=== PATIENT | female | born 1965 | race Caucasian/White ===

== ENCOUNTER 2018-02-20 14:27 | Outpatient (CLI) | payer BC, MEDICARE ==
--- NOTE | 2018-02-20 15:42 | MRI ---
MRI LUMBAR SPINE NONCONTRAST: INDICATION: Lumbar spondylolisthesis, stenosis. Chronic low back pain. FINDINGS: There is grade I spondylolisthesis at L3-4, with associated disk bulge and moderate disk space narrow ing. No acute marrow edema or compression fracture. The conus medullaris is normal in morphology an d terminates at the L1-2 level. At L1-2, L2-3, L4-5, and L5-S1, no significant central canal or neural foraminal stenosis is demonstr ated. L3-4 level, as discussed above, demonstrates grade I spondylolisthesis, and when combined with broad- based disk bulge and moderate bilateral facet osteoarthritis with redundancy of ligamentum flava resu lts in severe central canal stenosis, moderate right and mild left neural foraminal narrowing. No obvious marrow edema of the pars region of L3. A displaced pars fracture is not identified. IMPRESSION: Spondylolisthesis and prominent degenerative change centered at L3-4, which does result in severe madelyn tral canal stenosis and bilateral neural foraminal compromise, greater on the right. POS: TPC
== END 2018-02-20 14:28 | disposition home or self-care (01) ==
LOC: TBSIIMAG 14:27
PROVIDERS: ATTEND Neurological Surgery
DX: M43.16 Spondylolisthesis, lumbar region (principal); M48.061 Spinal stenosis, lumbar region without neurogenic claudication; M47.816 Spondylosis without myelopathy or radiculopathy, lumbar region
CPT/HCPCS: 72148

== ENCOUNTER 2018-03-03 13:47 | Outpatient (CLI) | payer BC, MEDICARE ==
[2018-03-03 15:10] LABS: BHCG - Serum Negative (NEGATIVE); Pregs Control Background? CLEAR/WHITE (CLR/WHITE); Pregs Control Bar Appear? YES (CONTROL BAR)
== END 2018-03-03 13:48 | disposition home or self-care (01) ==
LOC: LABBT 13:47
PROVIDERS: ATTEND Neurological Surgery
DX: Z01.818 Encounter for other preprocedural examination (principal); M43.16 Spondylolisthesis, lumbar region; M48.061 Spinal stenosis, lumbar region without neurogenic claudication
CPT/HCPCS: 84703; 93005; 93010

== ENCOUNTER 2018-03-13 06:40 | Observation (INO) | payer BC, MEDICARE ==
[2018-03-03 14:06] VITALS: BMI 33.0
--- NOTE | 2018-03-13 07:30 | HP ---
HISTORY OF PRESENT ILLNESS: Ms. Garcia is a 52-year-old woman presenting today for referral by Dr. Shah for evaluation of lower back pain with bilateral L3-L4 pain, and neurogenic claudication symptoms. The injection she received helped tremendously, but over a month or so, her pain will recur. She had an MRI from [place] that revealed severe central canal stenosis and foraminal stenosis at L3- L4 with a grade I spondylolisthesis as well. She is here today to discuss possible surgery. PAST MEDICAL HISTORY: Significant for anxiety, seasonal allergies, hyperlipidemia, chronic pain syndrome, depression, migraines, and hypertension. PAST SURGICAL HISTORY: section, cholecystectomy. ALLERGIES: 1. SULFA DRUGS. 2. ADHESIVES. CURRENT MEDICATIONS: 1. Polyethylene glycol. 2. Lisinopril/hydrochlorothiazide. 3. [place]. 4. Clonazepam. 5. Atorvastatin. 6. Latuda. 7. Topiramate. 8. Lyrica. 9. Tramadol. 10. Vyvanse. PHYSICAL EXAMINATION: GENERAL: The patient is alert and oriented x3. Gait is significantly antalgic. EXTREMITIES: Lower extremity motor exam is normal. ASSESSMENT: Lumbar spondylolisthesis, back pain, and radiculopathy. PLAN: Dr. Spivey met with the patient, reviewed imaging, and advocated for an L3 -L4 facetectomy and fusion. He explained to the patient the risks, benefits, and alternatives to the procedure. The patient expressed understanding and elected to move forward with surgery as discussed. I do believe that the patient is mentally competent and capable of making medical decisions for herself. We will move forward with surgery as planned. Job ID: [id number] [facility]
[2018-03-13] MEDS ORDERED: CEFAZOLIN 2 GM/50 ML BAG ONE (07:36)
[2018-03-13] MEDS ORDERED: Ipratropium Bromide 2.5 ml Neb ONE (07:36)
[2018-03-13] MEDS ORDERED: Ketorolac Tromethamine 30 MG/ML VIAL ONE (08:01)
[2018-03-13] MEDS ORDERED: Ondansetron PF 4 MG/2 ML Vial ONE (08:01)
[2018-03-13] MEDS ORDERED: Glycopyrrolate 0.2 MG/ML 5 ML SYRINGE ONE (08:01)
[2018-03-13] MEDS ORDERED: Lidocaine 1% PF 5 ML VIAL ONE (08:01)
[2018-03-13] MEDS ORDERED: Dexamethasone 20 MG/5 ML VIAL ONE (08:01)
[2018-03-13] MEDS ORDERED: PHENYLEPHRINE-NS 100 MCG/ML 10 ML SYRINGE ONE (08:01)
[2018-03-13] MEDS ORDERED: ePHEDrine/0.9% NaCl/PF SYRINGE 50 mg/10 ml ONE (08:01)
[2018-03-13] MEDS ORDERED: PROPOFOL 200 MG/20 ML VIAL ONE (08:01)
[2018-03-13] MEDS ORDERED: Thrombin 5000 UNITS/5 ML VIAL ONE (08:26)
[2018-03-13] MEDS ORDERED: Bupivacaine HCl 0.5%/Epinephrine 1:200,000/PF 30 ml Vial ONE (08:26)
[2018-03-13] MEDS ORDERED: Midazolam HCl 2 mg/2 ml Vial ONE (08:30)
[2018-03-13] MEDS ORDERED: HYDROmorphone 2 MG/ML VIAL ONE (08:43)
[2018-03-13] MEDS ORDERED: Lidocaine 2% Jelly 5 ML TUBE ONE (08:44)
[2018-03-13] MEDS ORDERED: Morphine Sulfate 2 MG/ML SYRINGE SLOW IVP PRN (11:07)
[2018-03-13] MEDS ORDERED: PACU-Morphine 4MG/ML VIAL SLOW IVP PRN (11:07)
[2018-03-13] MEDS ORDERED: Promethazine HCl 25 MG/ML VIAL SLOW IVP PRN (11:07)
[2018-03-13] MEDS ORDERED: HYDROmorphone 2 MG/ML VIAL SLOW IVP PRN (11:07)
[2018-03-13] MEDS ORDERED: Meperidine HCl/PF 25 MG/ML VIAL SLOW IVP PRN (11:07)
[2018-03-13] MEDS ORDERED: Promethazine HCl 25 MG/ML VIAL IM PRN (11:07)
[2018-03-13] MEDS ORDERED: Ondansetron HCl/PF 4 MG/2 ML Vial IVP PRN (11:07)
[2018-03-13] MEDS ORDERED: Acetaminophen 650 MG Suppository PR PRN (15:42)
[2018-03-13] MEDS ORDERED: diphenhydrAMINE 50 MG/ML VIAL IVP PRN (15:42)
[2018-03-13] MEDS ORDERED: Bisacodyl 10 MG SUPP PR PRN (15:42)
[2018-03-13] MEDS ORDERED: diphenhydrAMINE 25 MG CAP PO PRN (15:42)
[2018-03-13] MEDS ORDERED: Acetaminophen 325 MG TAB PO PRN (15:42)
[2018-03-13] MEDS ORDERED: Cyclobenzaprine 10 MG TAB PO PRN (15:42)
[2018-03-13] MEDS ORDERED: Milk Of Magnesia 30 ML UDCUP PO PRN (15:42)
[2018-03-13] MEDS ORDERED: Morphine 4 MG/ML VIAL SLOW IVP PRN ×2 (15:42→15:50)
[2018-03-13] MEDS ORDERED: HYDROcodone/Acetaminophen 10/325 mg Tablet PO PRN (15:42)
[2018-03-13] MEDS ORDERED: Ondansetron PF 4 MG/2 ML Vial IM PRN (15:43)
[2018-03-13] MEDS: Sodium Chloride 0.9% 1,000 ML IV SCH (15:59)
[2018-03-13] MEDS: CEFAZOLIN 2 GM/50 ML-DEXTROSE 2 GM in Premix Bag 1 BAG IVPB SCH (16:25)
[2018-03-13] MEDS ORDERED: traMADol HCl 50 MG TAB PO PRN (16:46)
[2018-03-13] MEDS: HYDROcodone/Acetaminophen 10/325 mg Tablet PO PRN ×2 (17:29→21:39)
--- NOTE | 2018-03-13 19:36 | OP ---
DATE OF PROCEDURE: 03/13/2018 BASEBALL INSPECTOR: Lavon Alford PA-C. INDICATION: Pain. DIAGNOSIS: Lumbar stenosis with lumbar radiculopathy with lumbar spondylolisthesis of L3 upon L4. PROCEDURE PERFORMED: L3-L4 decompression, L3-L4 facetectomies, L3-L4 posterolateral instrumented fusion, placement of allograft, placement of autograft. ANESTHESIA: General. DESCRIPTION OF PROCEDURE: The patient was brought into the operating room and placed under general anesthesia. She was flipped from a supine to prone position on the operating room table. A linear incision was planned over the L3-L4 segment. After prepping and draping and after preoperative pause, the incision was created. The soft tissues were swept away from midline. A self-retaining retractor was placed in the wound for optimal exposure. After confirming the appropriate level with C-arm fluoroscopy, high-speed cutting drill bit as well as Adson rongeur as well as 2, 3, and 4 mm Kerrisons were used to perform a laminectomy at L3-L4. The laminectomy was extended to encompass the medial aspect of the facet joints. The L3 and L4 pedicles were palpated. With the aid of C-arm fluoroscopy, pedicle screws were placed into the L3 and L4 pedicles bilaterally. Rods were then placed across the screw head and final tightened under slight distraction. An intraoperative 3D CT scan was performed to confirm placement of hardware. Allograft and autograft materials were then placed within the lateral confines of the instrumentation construct. The wound was irrigated. Hemostasis was maintained throughout. The wound was then closed in anatomic layers and a pressure dressing was applied. There were no known procedural complications. Job ID: [id number]
[2018-03-13] MEDS: clonazePAM 1 MG TAB PO SCH (20:59)
[2018-03-13] MEDS ORDERED: CANNABIDIOL PO SCH (21:00)
[2018-03-13] MEDS ORDERED: Polyethylene Glycol 3350 17 GM Packet PO SCH (21:00)
[2018-03-13] MEDS ORDERED: diphenhydrAMINE 50 MG CAP PO SCH (21:00)
[2018-03-13] MEDS ORDERED: Lisinopril/Hydrochlorothiazide 20/25 mg Tablet PO SCH (21:00)
[2018-03-13] MEDS ORDERED: EXTRACT PO SCH (21:00)
[2018-03-14] MEDS: CEFAZOLIN 2 GM/50 ML-DEXTROSE 2 GM in Premix Bag 1 BAG IVPB SCH (00:20)
[2018-03-14] MEDS: HYDROcodone/Acetaminophen 10/325 mg Tablet PO PRN ×2 (06:04→10:05)
[2018-03-14] MEDS: Mag-Al 1200 mg/1200 mg/30 ML UDCUP PO PRN ×2 (06:04→11:24)
[2018-03-14] MEDS: Sodium Chloride 0.9% 1,000 ML IV SCH ×2 (06:07→08:14)
[2018-03-14] MEDS: clonazePAM 1 MG TAB PO SCH (07:58)
[2018-03-14] MEDS ORDERED: Lisinopril/Hydrochlorothiazide 20/25 mg Tablet PO SCH (09:00)
[2018-03-14] MEDS ORDERED: Atorvastatin Calcium 10 MG TAB PO SCH (09:00)
[2018-03-14] MEDS ORDERED: Polyethylene Glycol 3350 17 GM Packet PO SCH (09:00)
[2018-03-14] MEDS ORDERED: Pregabalin 75 MG CAP PO SCH (09:00)
[2018-03-14] MEDS ORDERED: Lithium Carbonate 150 MG CAP PO SCH (09:00)
--- NOTE | 2018-03-14 11:03 | DIS ---
DATE OF ADMISSION: 03/13/2018 DATE OF DISCHARGE: 03/14/2018 HISTORY: Ms. Garcia is a 52-year-old woman, who was admitted yesterday, on March 13, 2018 in the postoperative period. ADMISSION DIAGNOSIS: Status post lumbar fusion. DISCHARGE DIAGNOSIS: Status post lumbar fusion. HOSPITAL COURSE: She ultimately was discharged on March 14 in stable condition with outpatient followup planned on March 31. No consultations were ordered. She did have some mild disruption or difficulty with her pain. She was given ultimately a fentanyl patch for discharge . Job ID: [id number]
--- NOTE | 2018-03-14 12:24 | PRG ---
DATE OF SERVICE: 03/14/2018 SUBJECTIVE: Ms. Garcia is one day status post lumbar fusion. She has done quite well overnight. She has anticipated postsurgical back pain. PLAN: Our plan will be to send her home today. We will see her back in two weeks. Job ID: [id number]
[2018-03-14 12:40] VITALS: BP 108/71; TEMP 97.9
[2018-03-14] MEDS ORDERED: Vilazodone Hcl [Viibryd] 40 MG PO SCH (21:00)
[2018-03-14] MEDS ORDERED: Lurasidone Hcl [Latuda] 80 MG PO SCH (21:00)
[2018-03-14] MEDS ORDERED: Lisdexamfetamine Dimesylate [Vyvanse] 40 MG PO SCH (21:00)
== END 2018-03-14 13:40 | disposition home or self-care (01) ==
LOC: SDC 06:40 → SURG B 13:25
PROVIDERS: ADMIT Neurological Surgery; ATTEND Neurological Surgery
PROC: 0SG0071 Fusion of Lumbar Vertebral Joint with Autologous Tissue Substitute, Posterior Approach, Posterior Column, Open Approach (ICD-10-PCS; principal; 2018-03-13)
DX: M48.062 Spinal stenosis, lumbar region with neurogenic claudication (principal); M43.16 Spondylolisthesis, lumbar region; M54.16 Radiculopathy, lumbar region; I10 Essential (primary) hypertension; E78.5 Hyperlipidemia, unspecified; F41.9 Anxiety disorder, unspecified; F32.9 Major depressive disorder, single episode, unspecified; G89.4 Chronic pain syndrome; Z90.49 Acquired absence of other specified parts of digestive tract; Z88.2 Allergy status to sulfonamides; Z91.09 Other allergy status, other than to drugs and biological substances; Z79.899 Other long term (current) drug therapy; Z98.890 Other specified postprocedural states
CPT/HCPCS: 76001; 96365; 96366; C1713; C1768; G0378; G8978-GP-CJ; G8979-GP-CJ; G8980-GP-CJ; J0131; J0670; J1100; J1170; J1885; J2001; J2250; J2405; J2704

== ENCOUNTER 2019-03-19 10:38 | Outpatient (CLI) | payer BC ==
[2019-03-19 15:11] LABS: Hemoglobin 13.8 g/dL (12.0-16.0); Mean Corpuscular HGB CONC 34.3 g/dL (32.0-36.0); Mean Corpuscular Hemoglobin 29.6 pg (27.0-31.0); Mean Corpuscular Volume 86.2 fL (78.0-98.0); Mean Platelet Volume 7.6 fL (7.4-10.4); Platelet Count 237 thou/uL (130-400); RBC Distribution Width 13.3 % (11.5-14.5); Red Blood Cell (RBC) Count 4.68 mill/uL (4.20-5.40); White Blood Cell (WBC) Count 8.9 thou/uL (4.8-10.8)
[2019-03-19 15:31] LABS: Anion Gap 14 mmol/L (10-20); BUN (Urea Nitrogen) 9 mg/dL (9.8-20.1); Calc. Creatinine Clearance 0 mL/min (70-130); Calcium 9.4 mg/dL (7.8-10.44); Carbon Dioxide 24 mmol/L (22-29); Chloride 106 mmol/L (98-107); Estimated GFR-MDRD 65; Glucose 94 mg/dL (70-105); Potassium 4.1 mmol/L (3.5-5.1); Sodium 140 mmol/L (136-145)
== END 2019-03-19 10:39 | disposition home or self-care (01) ==
LOC: LABBT 10:38
PROVIDERS: ATTEND Student in an Organized Health Care Education/Training Program
DX: Z01.818 Encounter for other preprocedural examination (principal); N81.6 Rectocele
CPT/HCPCS: 80048; 85027; 93005; 93010

== ENCOUNTER 2019-03-22 10:51 | Day surgery (SDC) | payer BC, MEDICARE ==
[2019-03-19 15:00] VITALS: BMI 33.3
[~2019-03-22 10:51] MED LIST: Dexamethasone 20 MG/5 ML VIAL ONE; Ketorolac Tromethamine 30 MG/ML VIAL ONE; Ondansetron PF 4 MG/2 ML Vial ONE; PHENYLEPHRINE-NS 100 MCG/ML 10 ML SYRINGE ONE; PROPOFOL 200 MG/20 ML VIAL ONE; Rocuronium Bromide 10 MG/ML (10ML VIAL) ONE
[2019-03-22] MEDS ORDERED: Gabapentin 300 MG CAP ONE (11:09)
[2019-03-22] MEDS ORDERED: Famotidine/PF 20 mg/2ml Vial ONE ×3 (11:09→12:05)
[2019-03-22] MEDS ORDERED: Lidocaine 1% w/Epinephrine 1:100K 20 ML VIAL ONE (14:13)
[2019-03-22] MEDS ORDERED: Fentanyl 100 MCG/2 ML VIAL ONE (14:27)
[2019-03-22] MEDS ORDERED: Midazolam HCl 2 mg/2 ml Vial ONE (14:27)
--- NOTE | 2019-03-24 23:31 | OP ---
DATE OF PROCEDURE: 03/22/2019 PREOPERATIVE DIAGNOSIS: Symptomatic rectocele. POSTOPERATIVE DIAGNOSIS: Symptomatic rectocele. PROCEDURES PERFORMED: Posterior colporrhaphy, and perineorrhaphy. ANESTHESIA: General LMA. ESTIMATED BLOOD LOSS: 20 mL. COMPLICATIONS: None. DRAINS: None. PATHOLOGY: None. FINDINGS: Stage III rectocele that protruded out past the hymenal ring, a small midline cystocele as well as slight uterine prolapse that the patient is asymptomatic from. DESCRIPTION OF PROCEDURE: The patient was taken to the operating room, where general anesthesia was obtained without difficulty. The patient was prepped and draped in a sterile fashion in the dorsal lithotomy position. Two Allis' were placed on the hymen at 4 and 8, and traction was held on the posterior vaginal mucosa. The vaginal mucosa was infiltrated with 1% lidocaine with epinephrine and the Metzenbaums were used to incise at the hymen and undermine the vaginal mucosa off the rectovaginal fascia. An incision was made in the midline throughout the length of the posterior vaginal wall. Allis' were placed on both skin edges and the rectovaginal fascia was dissected off the vaginal mucosa with Metzenbaums as well as with a fluffed-out Ray-Chiara using blunt dissection. Hemostasis was achieved with the Bovie. The apical posterior mucosa was then plicated in a pursestring fashion with 2-0 Vicryl and the remainder of the posterior fascia was plicated in a [id number] fashion down the length of the vaginal mucosa ensuring the grasp being good, strong areas of fascia and areas that were clearly with a defect being reapproximated to provide good strength to the posterior wall. Once the entire posterior wall was plicated, the Bovie on cut was used to make a triangular incision on the perineum for perineorrhaphy. The skin was removed with the use of the Bovie and discarded. The superficial transverse perineal muscles were then dissected out with the Metzenbaums and the perineum was plicated in the midline with the U-stitch with 2-0 Vicryl x2. At that point, irrigation was performed of the surgical site. Hemostasis was noted. The vaginal mucosa was closed with a 2-0 Vicryl in a running locking fashion and the knot was placed just inside the vagina after the perineum was also closed in the same fashion. All instruments were removed from the vagina. The vagina was packed with a moist Kerlix. Hemostasis was noted. The patient tolerated the procedure well. Sponge, lap, and needle counts were correct x2. The patient was taken to recovery room in stable condition. The patient received Ancef 2 g prior to the procedure. Job ID: [id number]
== END 2019-03-22 17:55 | disposition home or self-care (01) ==
LOC: SDC 10:51
PROVIDERS: ATTEND Student in an Organized Health Care Education/Training Program
PROC: 0JQC0ZZ Repair Pelvic Region Subcutaneous Tissue and Fascia, Open Approach (ICD-10-PCS; principal; 2019-03-22)
PROC: 0WQNXZZ Repair Female Perineum, External Approach (ICD-10-PCS; principal; 2019-03-22)
DX: N81.4 Uterovaginal prolapse, unspecified (principal); I10 Essential (primary) hypertension; E78.5 Hyperlipidemia, unspecified; F41.9 Anxiety disorder, unspecified; F31.9 Bipolar disorder, unspecified; M19.90 Unspecified osteoarthritis, unspecified site; Z79.2 Long term (current) use of antibiotics; Z79.899 Other long term (current) drug therapy; Z88.2 Allergy status to sulfonamides; Z91.048 Other nonmedicinal substance allergy status
CPT/HCPCS: J0690; J1100; J1885; J2250; J2405; J2704; J3010; S0028

== ENCOUNTER 2021-12-31 14:16 | Outpatient (CLI) | payer OTHER, MEDICARE | END 2021-12-31 14:17 | disposition home or self-care (01) | LOC: BICMAMMO 14:16 | PROVIDERS: ATTEND Student in an Organized Health Care Education/Training Program | DX: R92.8 Other abnormal and inconclusive findings on diagnostic imaging of breast (principal) | CPT/HCPCS: G0279 ==

== ENCOUNTER 2022-07-04 13:52 | Outpatient (CLI) | payer OTHER, MEDICARE | END 2022-07-04 13:53 | disposition home or self-care (01) | LOC: BICMAMMO 13:52 | PROVIDERS: ATTEND Student in an Organized Health Care Education/Training Program | DX: R92.8 Other abnormal and inconclusive findings on diagnostic imaging of breast (principal); N64.89 Other specified disorders of breast | CPT/HCPCS: G0279 ==

== ENCOUNTER 2023-09-05 14:23 | Outpatient (CLI) | payer OTHER, MEDICARE | END 2023-09-05 14:24 | disposition home or self-care (01) | LOC: BICMAMMO 14:23 | PROVIDERS: ATTEND Student in an Organized Health Care Education/Training Program | DX: R92.8 Other abnormal and inconclusive findings on diagnostic imaging of breast (principal) | CPT/HCPCS: 77066; G0279 ==

== ENCOUNTER 2024-12-01 09:50 | Outpatient (CLI) | payer OTHER, MEDICARE | END 2024-12-01 09:51 | disposition home or self-care (01) | LOC: ULT 09:50 | PROVIDERS: ATTEND Physician Assistant | DX: R14.0 Abdominal distension (gaseous) (principal); K76.0 Fatty (change of) liver, not elsewhere classified | CPT/HCPCS: 76700 ==